=== PATIENT | female | born 1965 | race Caucasian/White ===

== ENCOUNTER 2019-10-07 01:04 | Outpatient (CLI) | payer BC, SELFPAY ==
[2019-10-07 17:34] LABS: SARS-CoV-2 RNA PCR Negative
== END 2019-10-07 01:05 | disposition home or self-care (01) ==
LOC: ANHCOVIDDT 01:05
PROVIDERS: Visit Provider Obstetrics & Gynecology
DX: Z01.818 Encounter for other preprocedural examination (principal); Z11.59 Encounter for screening for other viral diseases; D21.9 Benign neoplasm of connective and other soft tissue, unspecified
CPT/HCPCS: 87635; C9803; U0003

== ENCOUNTER 2019-10-07 09:45 | Outpatient (CLI) | payer BC, SELFPAY ==
[2019-10-07 10:46] LABS: Hematocrit 40.7 % (37.0-47.0); Hemoglobin 13.8 g/dL (12.0-15.0); Mean Corpuscular HGB Conc 33.9 g/dl (32-36); Mean Corpuscular Hemoglobin 30.1 pg (26-34); Mean Corpuscular Volume 88.7 fl (80-100); Mean Platelet Volume 10.9 fl (7.4-10.4); Platelet Count Result 174 k/mm3 (150-375); Red Blood Count 4.59 M/mm3 (4.2-5.4); Red Cell Distribution Width 12.5 % (11.5-14.5); White Blood Count 4.4 K/mm3 (4.5-10.0)
== END 2019-10-07 09:46 | disposition home or self-care (01) ==
PROVIDERS: PCP Family Medicine; Visit Provider Obstetrics & Gynecology
DX: Z01.818 Encounter for other preprocedural examination (principal); D21.9 Benign neoplasm of connective and other soft tissue, unspecified
CPT/HCPCS: 36415; 85027; 86850; 86900; 86901

== ENCOUNTER 2019-10-09 01:25 | Day surgery (SDC) | payer BC, SELFPAY ==
[2019-09-28 14:07] VITALS: BMI 29.5
--- NOTE | 2019-10-07 07:29 | P.HP_ITS ---
H&P: HPI History of Present Illness Chief complaint: Enlarged Uterus/ Fibroids/ Pelvic Pain Narrative: Yasmeen Schneider is a 53 year old female Who presents for robotic total vaginal hysterectomy and bilateral salpingo- oophorectomy. She has markedly enlarged uterus. She had an ultrasound that showed fibroid measuring 1.8x10.2cm. Neither ovary could be seen she has pain and discomfort. Risks and benefits of this procedure reviewed including but not exclusive of , aspiration pneumonia, bleeding, transfusion, perforation injury to bowel, bladder, ureters, or other internal organs with need for open laparotomy. She received the [employer] handout entitled hysterectomy as well so div in she handout. She had all questions answered she asked to proceed Review of Systems Review of Systems: All systems reviewed & are unremarkable except as noted in HPI and below Meds Home Medications and Allergies Home Medications Medication Instructions Recorded Confirmed Type ascorbic acid (vitamin C) [Vitamin 1 g PO DAILY 09/28/19 09/28/19 History C] cholecalciferol (vitamin D3) 10 mcg PO DAILY 09/28/19 09/28/19 History [Vitamin D3] milk thistle seed extract 240 mg PO DAILY 09/28/19 09/28/19 History multivit with min-folic acid 0.4 mg PO DAILY 09/28/19 09/28/19 History [Adult One Daily Multivitamin] [id number]-fish oil [[place]-3 500 cap PO DAILY 09/28/19 09/28/19 History Fish Oil] vitamin B complex-folic acid [B 1 tablet PO DAILY 09/28/19 09/28/19 History Complex 100] Allergies Allergy/AdvReac Type Severity Reaction Status Date / Time shrimp Allergy Severe Swelling Verified 09/28/19 13:53 of the Eye codeine Allergy Intermediate Nausea and Verified 09/28/19 13:53 Vomiting Exam Const: General: no acute distress Eyes: General: appearance normal, both eyes and all related structures Neck: Neck: supple and no JVD Thyroid: thyroid normal Resp: Effort & Inspection: normal respiratory effort Auscultation: clear to auscultation bilaterally Cardio: Rate: regular rate Rhythm: regular rhythm GI: Inspection: non-distended GI Palp: Yes Soft to palpation, No Tenderness to palpation present (GI) and No Guarding due to palpation present (GI) Auscultation: normal bowel sounds : General: Yes bladder normal to palpation External Female Exam: normal external appearance Speculum Exam - Vagina: normal vaginal discharge and No vaginal bleeding Speculum Exam - Cervix: normal appearance of the cervix and nontender Bimanual exam- vagina & uterus: bladder normal to palpation, No Cervical tenderness present and enlarged OB/external & speculum: No vaginal bleeding Skin: General skin exam: no rashes or lesions noted Extrem: General: normal to inspection and no edema Psych: Mental Status: mental status grossly normal Affect: normal affect Assessment and Plan Additional Plan impression: Fibroid uterus Plan: Robotic total vaginectomy and bilateral salpingo-oophorectomy
[2019-10-09] VITALS (15 sets, daily range): BP systolic 93–120; BP diastolic 58–71; PULSE 58–97; RESP 9–18; TEMP 35.8–37.1; O2SAT 93–100
--- NOTE | 2019-10-09 06:44 | WPDHPUPDATE1 ---
History and Physical Update Update Date/Time: 10/09/19 06:44 History and Physical has been reviewed, including an updated exam of the patient. There are NO changes in the patient's condition. Risks, benefits, and alternatives have been discussed and questions answered. Patient agrees to proceed with procedure.
--- NOTE | 2019-10-09 07:52 | P.PNAN_ITS ---
Anes - Initial Pre Proc Eval Procedure: Operation Date: 10/09/19 09:30 Proposed Procedures p Robotic Assisted Total Vaginal Hysterectomy, Bilateral Salpingo-Oophorectomy - Raghav Wesley MD Date/Time: 10/09/19 07:52 Surgeon: Raghav Wesley MD Pre Op Diagnosis: Enlarged Uterus/ Fibroids/ Pelvic Pain Patient Data Age: 53 Gender: F Height: 1.63 m Weight: 78 kg Allergies Allergy/AdvReac Type Severity Reaction Status Date / Time shrimp Allergy Severe Swelling Verified 09/28/19 13:53 of the Eye codeine Allergy Intermediate Nausea and Verified 09/28/19 13:53 Vomiting Home Medications Medication Instructions Recorded Confirmed Type ascorbic acid (vitamin C) [Vitamin 1 g PO DAILY 09/28/19 09/28/19 History C] cholecalciferol (vitamin D3) 10 mcg PO DAILY 09/28/19 09/28/19 History [Vitamin D3] milk thistle seed extract 240 mg PO DAILY 09/28/19 09/28/19 History multivit with min-folic acid 0.4 mg PO DAILY 09/28/19 09/28/19 History [Adult One Daily Multivitamin] [id number]-epa-fish oil [[place]-3 500 cap PO DAILY 09/28/19 09/28/19 History Fish Oil] vitamin B complex-folic acid [B 1 tablet PO DAILY 09/28/19 09/28/19 History Complex 100] hydrocodone-acetaminophen [[place]] 1 tablet PO Q4H PRN #30 tablet 10/09/19 Rx Patient hx anesthesia problems: none Family hx anesthesia problems: none PMFSH Past Medical History Medical History (Updated 10/09/19 @ 07:53 by Tee Miles MD) Cancer BREAST - Mastectomy Leiomyoma Overweight (BMI 25.0-29.9) Anes - Eval Final PreProcedure Day of Procedure 10/09/19 07:52 Patient weight: overweight Heart: regular rate and rhythm Lungs: clear to auscultation and normal air movement Airway: Mallampati scale class II Neurological: alert and oriented Last oral intake: >/= 8 hours ASA classification: III Emergent: no Anesthetic plan: proceed Anesthesia type and monitoring: general ETT Informed Consent: The patient's anesthetic plan and its attendant risks and benefits were discussed with the patient/family/POA. Questions were solicited and answers provided to the satisfaction of the patient/family/POA.
[2019-10-09] MEDS: LACTATED RINGERS 1,000 ML 30 ML IV CONT ×2 (08:40→14:07)
[2019-10-09] MEDS: ceFAZolin 2 GM/D5W 50 ML 2 GM/50 ML BAG IVPB (09:22)
--- NOTE | 2019-10-09 09:29 | SUR.PREOP ---
0900- PT SPOKE WITH DR. STEPHANIE BROWN ABOUT SCHEDULED SURGERY. CONSENT UPDATED AND SIGNED BY DR. STEPHANIE BROWN AND PT.
[2019-10-09] MEDS: KETOROLAC 30 MG/ML VIAL (*BKC) IV PUSH (11:39)
--- NOTE | 2019-10-09 13:58 | PM.PROC ---
Procedure Note - Detailed Date of procedure: 10/09/19 Pre-op diagnosis: Enlarged Uterus/ Fibroids/ Pelvic Pain Surgeon: Raghav Wesley MD Postop diagnosis enlarged uterus/ large ovarian cyst Procedure: Robotic total vaginal hysterectomy right salpingectomy / left salpingo-oophorectomy Anesthesia: General endotracheal EBL 100cc Findings: Huge left ovarian cyst mildly enlarged uterus Complications none Description of procedure. Patient was prepped draped in the normal sterile fashion placed in the dorsal lithotomy position. Under excellent general endotracheal anesthesia weighted speculum was placed in posterior fornix of vagina. Anterior lip of the cervix grasped with single-tooth tenaculum and uterus sounded to 10cm. Serial dilatation fragment out performed followed by passage of the 10 DAVID and the 3. Half cold cup. Sixteen [place] was then placed. Gloves were changed A supraumbilical incision was made Veress needle passed in the abdomen. Abdomen was filled with CO2 gas to 15 the trocar advanced clamped. Downside visualized nodule seen para gas was attached. Postop instruction and right lateral quadrant incision 8 trocars were advanced in right quadrant under direct visualization assuring injury upper quadrant incision made with a 10mm trocar advanced under direct position assuring me the robot was docked Attention was turned to the child and family counselor. The huge left ovarian cyst was cm solid in nature had a benign appearance. The hysterectomy was to be undertaken left round ligament was grasped burned cut. Anteriorly a bladder flap was formed to the opposite round ligament which was clamped burned and cut. the right fallopian tube was then dissected away from the ovary to be removed with the specimen. The left ovary was enormous and attention would be turned to that after the hysterectomy was performed. The left utero-ovarian was clamped, burned, cut and brought to the level of the previously cut round ligament. The right ovary was conserved by clamping burning and cutting the utero-ovarian ligament to the previously cut round ligament the left cardinal and broad ligaments were serially skeletonized clamped burned cut and brought down to the level uterine vessels the left these were serially skeletonized clamped burned and cut. In like fashion cardinal and broad ligaments were serially skeletonized clamped, burned, cut and brought down to the level of the blood vessels which were clamped, burned, cut. Excellent blanching the uterus was seen at that point attention was turned to removal of the ovary it was enormous is noted. The left infundibulopelvic structure was skeletonized clamped burned and cut on the uterus was then removed through the vagina after colpotomy incision was made. The ovary was placed in the cul-de-sac and dissected in several pieces. These were brought out through an Endo-Catch 15mm bag through the vagina through several passes. Once this was undertaken the vagina was closed with continuous running 0 0V lock from lateral edge lateral edge back to midline. Irrigation was undertaken to clear blood loss was estimated [id number] the robot was undocked gas removed from the abdomen. The trocars removed and the incisions closed with 4 Monocryl glue. Patient was wakened which recovered satisfactory condition. All sponge, needle, instrument counts were correct. There were no immediate complications
[2019-10-09] MEDS: ONDANSETRON INJ 4 MG/2 ML VIAL IV PUSH ×2 (15:00→19:55)
[2019-10-09] MEDS: DEXTROSE 5%/LACTATED RINGERS 1,000 ML 125 ML IV CONT ×2 (15:23→23:46)
--- NOTE | 2019-10-09 16:39 | PC.NURSE ---
This patient, Yasmeen Schneider, was received from PACU on 10/09/19 at 1515. Patient/family oriented to unit policies and routines
[2019-10-09] MEDS: MORPHINE SULFATE 4 MG/ML INJ IV PUSH (17:36)
[2019-10-10] MEDS: MORPHINE SULFATE 4 MG/ML INJ IV PUSH (00:14)
[2019-10-10] MEDS: SIMETHICONE 80 MG TAB.CHEW PO ×4 (02:17→12:25)
[2019-10-10] MEDS: KETOROLAC 30 MG/ML VIAL (*BKC) IV PUSH ×2 (02:17→08:02)
[2019-10-10 04:13] VITALS: BP 103/62; PULSE 74; RESP 16; TEMP 37.2; O2SAT 95
[2019-10-10 05:33] LABS: Basophils Percent Auto 0.2 % (0.2-1.2); Hematocrit 32.7 % (37.0-47.0); Immature Granulocyte Absolute 0.07 K/mm3 (0.00-0.031); Immature Granulocyte Percent A 0.6 % (0-0.5); Lymphocytes Absolute Auto 1.28 K/mm3 (0.9-3.2); Lymphocytes Percent Auto 10.2 % (18.3-44.2); Mean Corpuscular HGB Conc 33.6 g/dl (32-36); Mean Corpuscular Hemoglobin 29.8 pg (26-34); Mean Corpuscular Volume 88.6 fl (80-100); Mean Platelet Volume 11.5 fl (7.4-10.4); Monocytes Absolute Auto 0.9 K/mm3 (0.1-0.6); Monocytes Percent Auto 7.2 % (2.6-8.5); Neutrophils Absolute Auto 10.2 K/mm3 (1.3-6.7); Neutrophils Percent Auto 81.8 % (45.5-73.1); Platelet Count Result 151 k/mm3 (150-375); Red Blood Count 3.69 M/mm3 (4.2-5.4); Red Cell Distribution Width 12.5 % (11.5-14.5); White Blood Count 12.5 K/mm3 (4.5-10.0)
--- NOTE | 2019-10-10 07:26 | P.PNOB_ITS ---
OB - PN: Subj Subjective Date/time seen: 10/10/19 07:26 Patient comments: no complaints and pain well controlled OB - PN: Obj Data Labs CBC & Chem 7: 10/10/19 04:06 Labs: Laboratory Results - last 24 hr 10/10/19 04:06 WBC 12.5 H RBC 3.69 L Hgb 11.0 L Hct 32.7 L MCV 88.6 MCH 29.8 MCHC 33.6 RDW 12.5 Plt Count 151 MPV 11.5 H Immature Gran % (Auto) 0.6 H Neut % (Auto) 81.8 H Lymph % (Auto) 10.2 L [place] % (Auto) 7.2 Eos % (Auto) 0.0 Baso % (Auto) 0.2 Lymph # (Auto) 1.28 [place] # (Auto) 0.9 H Eos # (Auto) 0.0 Baso # (Auto) 0.0 Abs Immat Gran (auto) 0.07 H Absolute Neuts (auto) 10.2 H Absolute Nucleated RBC 0.0 Nucleated RBC % 0.0 OB - PN A/P Plan day: 1 Plan: discharge home and follow up 6 weeks (2 weeks) Time Spent With Patient Time: Total time spent is greater than 50% in coordination of care (as documented) at patient's floor/unit and/or counseling patient: Time with patient: less than 15 minutes Review of Systems Review of Systems: All systems reviewed & are unremarkable except as noted in HPI and below Exam Const: General: no acute distress Eyes: General: appearance normal, both eyes and all related structures Neck: Neck: supple and no JVD Thyroid: thyroid normal Resp: Effort & Inspection: normal respiratory effort Auscultation: clear to auscultation bilaterally Cardio: Rate: regular rate Rhythm: regular rhythm GI: Inspection: non-distended GI Palp: Yes Soft to palpation, No Tenderness to palpation present (GI) and No Guarding due to palpation present (GI) Auscultation: normal bowel sounds : General: Yes bladder normal to palpation External Female Exam: normal external appearance Speculum Exam - Vagina: normal vaginal discharge and No vaginal bleeding Speculum Exam - Cervix: nontender Bimanual exam- vagina & uterus: bladder normal to palpation and No Cervical tenderness present OB/external & speculum: No vaginal bleeding Skin: General skin exam: no rashes or lesions noted Extrem: General: normal to inspection and no edema Psych: Mental Status: mental status grossly normal Affect: normal affect
--- NOTE | 2019-10-10 07:26 | P.DS_ITS ---
DS: Admitting Diagnosis Admitting Diagnosis Admitting Diagnosis: Benign neoplasm of connective and other soft tissue, unspecified DS: Summary Time Spent with Patient Time attestation: Total time spent providing and/or coordinating discharge services: Exam Const: General: no acute distress Eyes: General: appearance normal, both eyes and all related structures Neck: Neck: supple and no JVD Thyroid: thyroid normal Resp: Effort & Inspection: normal respiratory effort Auscultation: clear to auscultation bilaterally Cardio: Rate: regular rate Rhythm: regular rhythm GI: Inspection: non-distended GI Palp: Yes Soft to palpation, No Tenderness to palpation present (GI) and No Guarding due to palpation present (GI) Auscultation: normal bowel sounds : General: Yes bladder normal to palpation External Female Exam: normal external appearance Speculum Exam - Vagina: normal vaginal discharge and No vaginal bleeding Speculum Exam - Cervix: nontender Bimanual exam- vagina & uterus: bladder normal to palpation and No Cervical tenderness present OB/external & speculum: No vaginal bleeding Skin: General skin exam: no rashes or lesions noted Extrem: General: normal to inspection and no edema Psych: Mental Status: mental status grossly normal Affect: normal affect DS: Data Data Completed and Pending Pending studies at discharge: Pending at discharge 10/09/19 11:36 Surgical [PTH] Routine Labs on day of discharge: Labs from last 24 hours 10/10/19 04:06 WBC 12.5 H RBC 3.69 L Hgb 11.0 L Hct 32.7 L MCV 88.6 MCH 29.8 MCHC 33.6 RDW 12.5 Plt Count 151 MPV 11.5 H Immature Gran % (Auto) 0.6 H Neut % (Auto) 81.8 H Lymph % (Auto) 10.2 L [place] % (Auto) 7.2 Eos % (Auto) 0.0 Baso % (Auto) 0.2 Lymph # (Auto) 1.28 [place] # (Auto) 0.9 H Eos # (Auto) 0.0 Baso # (Auto) 0.0 Abs Immat Gran (auto) 0.07 H Absolute Neuts (auto) 10.2 H Absolute Nucleated RBC 0.0 Nucleated RBC % 0.0 Discharge Plan Discharge Patient Disposition: Home, Self-Care Stand Alone Forms: General Discharge Instructions Follow-up/Referrals: Raghav Wesley MD [Physician] - Discharge Medications: New hydrocodone-acetaminophen [[place]] 5-325 mg tablet 1 tablet PO Q4H PRN (Reason: pain) Qty: 30 RF: 0 Continued [place]-3 Fish Oil 300-1,000 mg Capsule 500 cap PO DAILY RF: 0 vitamin B complex-folic acid [B Complex 100] 0.4 mg Tablet 1 tablet PO DAILY RF: 0 ascorbic acid (vitamin C) [Vitamin C] 1,000 mg Tablet 1 g PO DAILY RF: 0 cholecalciferol (vitamin D3) [Vitamin D3] 10 mcg (400 unit) Capsule 10 mcg PO DAILY RF: 0 Adult One Daily Multivitamin 0.4 mg Tablet 0.4 mg PO DAILY RF: 0 milk thistle seed extract 200 mg Capsule 240 mg PO DAILY RF: 0
--- NOTE | 2019-10-10 07:27 | P.PNOB_ITS ---
OB - PN: Subj Subjective Date/time seen: 10/10/19 07:27 Patient comments: no complaints and pain well controlled OB - PN: Obj Data Labs CBC & Chem 7: 10/10/19 04:06 Labs: Laboratory Results - last 24 hr 10/10/19 04:06 WBC 12.5 H RBC 3.69 L Hgb 11.0 L Hct 32.7 L MCV 88.6 MCH 29.8 MCHC 33.6 RDW 12.5 Plt Count 151 MPV 11.5 H Immature Gran % (Auto) 0.6 H Neut % (Auto) 81.8 H Lymph % (Auto) 10.2 L [place] % (Auto) 7.2 Eos % (Auto) 0.0 Baso % (Auto) 0.2 Lymph # (Auto) 1.28 [place] # (Auto) 0.9 H Eos # (Auto) 0.0 Baso # (Auto) 0.0 Abs Immat Gran (auto) 0.07 H Absolute Neuts (auto) 10.2 H Absolute Nucleated RBC 0.0 Nucleated RBC % 0.0 OB - PN A/P Time Spent With Patient Time: Total time spent is greater than 50% in coordination of care (as document ed) at patient's floor/unit and/or counseling patient: Review of Systems Review of Systems: All systems reviewed & are unremarkable except as noted in HPI and below Exam Const: General: no acute distress Eyes: General: appearance normal, both eyes and all related structures Neck: Neck: supple and no JVD Thyroid: thyroid normal Resp: Effort & Inspection: normal respiratory effort Auscultation: clear to auscultation bilaterally Cardio: Rate: regular rate Rhythm: regular rhythm GI: Inspection: non-distended GI Palp: Yes Soft to palpation, No Tenderness to palpation present (GI) and No Guarding due to palpation present (GI) Auscultation: normal bowel sounds : General: Yes bladder normal to palpation External Female Exam: normal external appearance Speculum Exam - Vagina: normal vaginal discharge and No vaginal bleeding Speculum Exam - Cervix: nontender Bimanual exam- vagina & uterus: bladder normal to palpation and No Cervical tenderness present OB/external & speculum: No vaginal bleeding Skin: General skin exam: no rashes or lesions noted Extrem: General: normal to inspection and no edema Psych: Mental Status: mental status grossly normal Affect: normal affect
[2019-10-10 08:00] VITALS: BP 109/59; PULSE 70; RESP 20; TEMP 36.6
[2019-10-10] MEDS: ENOXAPARIN 40 MG/0.4 ML SYRINGE SUB-Q (08:01)
[2019-10-10] MEDS: ONDANSETRON INJ 4 MG/2 ML VIAL IV PUSH (08:01)
[2019-10-10] MEDS: DOCUSATE SODIUM 100 MG CAPSULE PO (08:03)
--- NOTE | 2019-10-10 09:32 | WPDANESPN ---
Anes - Prog Note Post-Op Date/Time: 10/10/19 09:32 Cardiovascular status: normal Respiratory status: normal Airway patency: baseline Mental status: baseline Post-Op hydration status: normal Vital Signs: Last Vital Signs Temp 37.2 C 10/10/19 04:13 Pulse 74 10/10/19 04:13 Resp 16 10/10/19 04:13 BP 103/62 10/10/19 04:13 Pulse Ox 95 10/10/19 04:13 Pain Score (VAS): 0/10. Patient resting in bed at time of assessment. Pain and nausea relief with PRN medications. I/O: Intake & Output 10/09/19 10/10/19 10/10/19 23:59 07:59 15:59 Intake Total 1000 250 Output Total 250 450 Balance 750 -200 Laboratory Tests 10/10/19 04:06 10/10/19 04:06 WBC 12.5 H RBC 3.69 L Hgb 11.0 L Hct 32.7 L MCV 88.6 MCH 29.8 MCHC 33.6 RDW 12.5 Plt Count 151 MPV 11.5 H Immature Gran % (Auto) 0.6 H Neut % (Auto) 81.8 H Lymph % (Auto) 10.2 L [place] % (Auto) 7.2 Eos % (Auto) 0.0 Baso % (Auto) 0.2 Lymph # (Auto) 1.28 [place] # (Auto) 0.9 H Eos # (Auto) 0.0 Baso # (Auto) 0.0 Abs Immat Gran (auto) 0.07 H Absolute Neuts (auto) 10.2 H Absolute Nucleated RBC 0.0 Nucleated RBC % 0.0 Post-procedural complaints: none Patient Feedback: Patient satisfied with anesthetic care.
[2019-10-10] MEDS: IBUPROFEN 600 MG TABLET PO (12:24)
[2019-10-10] MEDS: ACETAMINOPHEN 325 MG TABLET 650 MG PO (12:27)
--- NOTE | 2019-10-10 15:14 | PC.NURSE ---
Discharge instructions given to pt. Pt. verbalized understanding. Stating she is desiring to go home. Instructed pt. to rest and take it easy. Pt. states headache is from sugar that was in the IVF's. Pt. states she has not had sugar in 3 years and forgot to tell anesthesia or MD. that she can't have sugar. Pt. continues to complain of some nausea but no emesis. Instructed pt. that prescription will be called in for Zolfran and to take as pharmacist instructs. Pt. verbalized understanding.
--- NOTE | 2019-10-10 15:45 | PC.NURSE ---
Prescriptions for Zolfran 4mg po q6 hr. prn for nausea phoned in to [facility] in [place] per Dr. Lee instructions/order.
== END 2019-10-10 16:09 | disposition home or self-care (01) ==
LOC: ANHSURGERY 07:22 → ANHOB2 15:11
PROVIDERS: Visit Provider Obstetrics & Gynecology
PROC: (CPT 58552; principal; 2019-10-09 09:30)
DX: D25.0 Submucous leiomyoma of uterus (principal); D25.1 Intramural leiomyoma of uterus; D27.1 Benign neoplasm of left ovary; N85.01 Benign endometrial hyperplasia; R10.2 Pelvic and perineal pain; Z85.3 Personal history of malignant neoplasm of breast
CPT/HCPCS: 58552; S2900; 36415; 85025; 88307; 99199; A9270; J0690; J1100; J1650; J1885; J2250; J2270; J2405; J2704; J2710; J3010; J7120; J7121